=== PATIENT | female | born 2000 | race African-American/Black ===

== ENCOUNTER 2023-02-21 11:10 | Emergency (ER) | payer OTHER ==
[~2023-02-21] VITALS: Ht 167.6 cm; Wt 73.9 kg
[2023-02-21] MEDS ORDERED: NS 1,000 ML IV ONE (13:25)
[2023-02-21 14:30] LABS: BASO % 0.5 % (0.0-1.0); EOS # 0.2 10^3/uL (0.0-0.5); HEMATOCRIT 35.5 % (36.0-47.0); HEMOGLOBIN 11.3 g/dl (12.0-15.5); LYMPH # 1.5 10^3/uL (1.5-5.0); LYMPH % 38.2 % (24.0-44.0); MEAN CORPUSCULAR HEMOGLOBIN 29.4 pg (27.0-33.0); MEAN CORPUSCULAR HGB CONC 31.8 g/dl (32.0-36.5); MEAN CORPUSCULAR VOLUME 92.4 fl (80.0-96.0); MONO # 0.4 10^3/uL (0.0-0.8); MONO % 11.2 % (2.0-8.0); NEUTROPHILS # 1.7 10^3/uL (1.5-8.5); NEUTROPHILS % 44.1 % (36.0-66.0); PLATELET COUNT, AUTOMATED 322 10^3/uL (150-450); RED BLOOD COUNT 3.84 10^6/uL (4.00-5.40); WHITE BLOOD COUNT 3.9 10^3/uL (4.0-10.0)
[2023-02-21 14:49] LABS: INR 0.98; PROTHROMBIN TIME 13.2 SECONDS (12.5-14.5)
[2023-02-21 14:50] LABS: PARTIAL THROMBOPLASTIN TIME 27.5 SECONDS (24.8-34.2)
[2023-02-21 14:51] LABS: LIPASE 22 U/L (12-53)
[2023-02-21 14:53] LABS: CPK CREATINE PHOSPHOKINASE 262 U/L (34-145); D-DIMER QUANT 730.46 ng/ml (<500)
[2023-02-21 14:57] LABS: ALBUMIN 3.6 G/DL (3.2-5.2); ALKALINE PHOSPHATASE 92 U/L (46-116); ALT/SGPT 13 U/L (7.0-40); AST/SGOT 16 U/L (<34); BILIRUBIN,DIRECT 0.3 MG/DL (<0.4); BILIRUBIN,TOTAL 0.8 MG/DL (0.3-1.2); CK-MB VALUE MASS < 1.0 NG/ML (<3.6); MB/CK RELATIVE INDEX 0.38 (< OR =4); TOTAL PROTEIN 6.8 G/DL (5.7-8.2)
[2023-02-21 15:09] LABS: RSV AMPLIFICATION NEGATIVE (NEGATIVE)
[2023-02-21] MEDS ORDERED: ISOVUE-370 76% 100ML VIAL As Ordered ONE (15:43)
[2023-02-21] MEDS ORDERED: FERR324T21 PO (16:46)
[2023-02-21] MEDS ORDERED: PRED20TA PO (16:46)
[2023-02-21 16:58] VITALS: BP 106/56; TEMP 97.3; O2SAT 98
== END 2023-02-21 16:59 | disposition home or self-care (01) ==
LOC: M ED 11:10
DX: M94.0 Chondrocostal junction syndrome [Tietze] (principal); D55.0 Anemia due to glucose-6-phosphate dehydrogenase [G6PD] deficiency; R06.02 Shortness of breath; Z88.2 Allergy status to sulfonamides; Z88.6 Allergy status to analgesic agent; Z88.1 Allergy status to other antibiotic agents; Z88.8 Allergy status to other drugs, medicaments and biological substances
CPT/HCPCS: 71046; 71275; 80047; 80076; 82550; 82553; 83690; 84443; 84484; 84702; 85025; 85379; 85610; 85730; 87631; 93005; 96360; 96361; 99284; Q9967

== ENCOUNTER 2024-02-26 20:24 | Emergency (ER) | payer OTHER ==
[~2024-02-26] VITALS: Ht 168.9 cm; Wt 82.1 kg
[~2024-02-26 20:24] MED LIST: FERR324T21 PO; PRED20TA PO
[2024-02-26 21:58] LABS: BASO % 0.6 % (0.0-1.0); EOS # 0.1 10^3/uL (0.0-0.5); EOS % 3.4 % (0.0-3.0); HEMATOCRIT 36.6 % (36.0-47.0); HEMOGLOBIN 11.8 g/dl (12.0-15.5); LYMPH # 1.5 10^3/uL (1.5-5.0); LYMPH % 40.7 % (24.0-44.0); MEAN CORPUSCULAR HEMOGLOBIN 29.9 pg (27.0-33.0); MEAN CORPUSCULAR HGB CONC 32.2 g/dl (32.0-36.5); MEAN CORPUSCULAR VOLUME 92.9 fl (80.0-96.0); MONO # 0.4 10^3/uL (0.0-0.8); MONO % 11.5 % (2.0-8.0); NEUTROPHILS # 1.6 10^3/uL (1.5-8.5); NEUTROPHILS % 43.5 % (36.0-66.0); PLATELET COUNT, AUTOMATED 313 10^3/uL (150-450); RED BLOOD COUNT 3.94 10^6/uL (4.00-5.40); WHITE BLOOD COUNT 3.6 10^3/uL (4.0-10.0)
[2024-02-26 22:33] LABS: BLOOD UREA NITROGEN 11 MG/DL (9-23); CALCIUM LEVEL 8.3 MG/DL (8.5-10.1); CARBON DIOXIDE LEVEL 29 MMOL/L (20-31); CHLORIDE LEVEL 107 MMOL/L (98-107); CK-MB VALUE MASS < 1.0 NG/ML (<3.6); CPK CREATINE PHOSPHOKINASE 359 U/L (34-145); GLOMERULAR FILTRATION RATE > 60.0 (>60); GLUCOSE, FASTING 101 MG/DL (60-100); MB/CK RELATIVE INDEX 0.27 (< OR =4); POTASSIUM SERUM 3.4 MMOL/L (3.5-5.1); SODIUM LEVEL 140 MMOL/L (136-145)
[2024-02-26 22:36] LABS: HCG, SERUM QUALITATIVE NEGATIVE (NEGATIVE)
[2024-02-26 23:32] VITALS: TEMP 98.3
[2024-02-27] MEDS: KETOROLAC 30 MG/ML 1ML VIAL IV ONE (03:55)
[2024-02-27] MEDS: NS 1,000 ML IV ONE (03:55)
[2024-02-27 05:26] LABS: CK-MB VALUE MASS < 1.0 NG/ML (<3.6); CPK CREATINE PHOSPHOKINASE 356 U/L (34-145); MB/CK RELATIVE INDEX 0.28 (< OR =4)
[2024-02-27 06:00] VITALS: BP 104/56; O2SAT 100
== END 2024-02-27 06:24 | disposition home or self-care (01) ==
LOC: M ED 20:24
DX: R51.9 Headache, unspecified (principal); R42 Dizziness and giddiness; D55.0 Anemia due to glucose-6-phosphate dehydrogenase [G6PD] deficiency; Z88.2 Allergy status to sulfonamides; Z88.6 Allergy status to analgesic agent; Z88.8 Allergy status to other drugs, medicaments and biological substances; Z79.899 Other long term (current) drug therapy; Z79.52 Long term (current) use of systemic steroids
CPT/HCPCS: 71045; 80048; 82550; 82553; 84484; 84703; 85025; 87486; 87581; 87633; 87798; 93005; 93041; 94760; 96361; 96374; 99285; J1885

== ENCOUNTER 2024-03-23 07:51 | Emergency (ER) | payer OTHER ==
[2024-03-23] MEDS ORDERED: DOXY100T (08:16)
[2024-03-23 08:39] LABS: BASO % 0.7 % (0.0-1.0); EOS % 0.9 % (0.0-3.0); HEMATOCRIT 39.1 % (36.0-47.0); HEMOGLOBIN 12.8 g/dl (12.0-15.5); LYMPH # 1.1 10^3/uL (1.5-5.0); LYMPH % 24.6 % (24.0-44.0); MEAN CORPUSCULAR HEMOGLOBIN 29.8 pg (27.0-33.0); MEAN CORPUSCULAR HGB CONC 32.7 g/dl (32.0-36.5); MEAN CORPUSCULAR VOLUME 91.1 fl (80.0-96.0); MONO # 0.4 10^3/uL (0.0-0.8); MONO % 9.3 % (2.0-8.0); NEUTROPHILS # 2.9 10^3/uL (1.5-8.5); NEUTROPHILS % 63.8 % (36.0-66.0); PLATELET COUNT, AUTOMATED 331 10^3/uL (150-450); RED BLOOD COUNT 4.29 10^6/uL (4.00-5.40); WHITE BLOOD COUNT 4.5 10^3/uL (4.0-10.0)
[2024-03-23 08:52] LABS: INR 1.06; PROTHROMBIN TIME 13.5 SECONDS (12.5-14.5)
[2024-03-23 09:03] LABS: ETHYL ALCOHOL (ETHANOL) 0.213 % (0.000-0.010); LIPASE 25 U/L (12-53)
[2024-03-23 09:04] LABS: AMYLASE 70 U/L (30-118)
[2024-03-23 09:05] LABS: ALBUMIN 3.8 G/DL (3.2-5.2); ALKALINE PHOSPHATASE 73 U/L (46-116); ALT/SGPT 20 U/L (7.0-40); AST/SGOT 46 U/L (<34); BILIRUBIN,DIRECT 0.1 MG/DL (<0.4); BILIRUBIN,TOTAL 0.4 MG/DL (0.3-1.2); BLOOD UREA NITROGEN 9 MG/DL (9-23); CALCIUM LEVEL 8.7 MG/DL (8.5-10.1); CARBON DIOXIDE LEVEL 23 MMOL/L (20-31); CHLORIDE LEVEL 108 MMOL/L (98-107); CK-MB VALUE MASS 1.6 NG/ML (<3.6); CREATININE FOR GFR 0.81 MG/DL (0.55-1.30); GLOMERULAR FILTRATION RATE > 60.0 (>60); GLUCOSE, FASTING 105 MG/DL (60-100); POTASSIUM SERUM 4.3 MMOL/L (3.5-5.1); SODIUM LEVEL 139 MMOL/L (136-145); TOTAL PROTEIN 7.6 G/DL (5.7-8.2)
[2024-03-23 09:06] LABS: CPK CREATINE PHOSPHOKINASE 367 U/L (34-145); MB/CK RELATIVE INDEX 0.43 (< OR =4)
[2024-03-23 09:11] LABS: HCG, SERUM QUALITATIVE NEGATIVE (NEGATIVE)
[2024-03-23 09:25] LABS: AMPHETAMINES LEVEL URINE NEGATIVE (NEGATIVE); BARBITURATES URINE NEGATIVE (NEGATIVE); BENZODIAZEPINES URINE NEGATIVE (NEGATIVE); COCAINE METABOLITE URINE NEGATIVE (NEGATIVE); METHADONE URINE NEGATIVE (NEGATIVE); OPIATES URINE NEGATIVE (NEGATIVE); PHENCYCLIDINE URINE NEGATIVE (NEGATIVE)
[2024-03-23 09:26] LABS: CANNABINOIDS URINE NEGATIVE (NEGATIVE)
[2024-03-23] MEDS: ACETAMINOPHEN 500 MG TAB PO ONE (11:06)
[2024-03-23] MEDS: methocarbamoL 500 MG TAB PO ONE (11:06)
[2024-03-23 11:49] LABS: CK-MB VALUE MASS 2.7 NG/ML (<3.6)
[2024-03-23 11:51] LABS: CPK CREATINE PHOSPHOKINASE 408 U/L (34-145); MB/CK RELATIVE INDEX 0.66 (< OR =4)
[2024-03-23] MEDS ORDERED: METH-1164 PO (12:37)
[2024-03-23 13:02] VITALS: BP 112/63; TEMP 97.9; O2SAT 100
== END 2024-03-23 13:13 | disposition home or self-care (01) ==
LOC: M ED 07:51
DX: S00.81XA Abrasion of other part of head, initial encounter (principal); F10.10 Alcohol abuse, uncomplicated; V43.62XA Car passenger injured in collision with other type car in traffic accident, initial encounter; Y92.9 Unspecified place or not applicable; Y93.9 Activity, unspecified; Y99.9 Unspecified external cause status; Z88.2 Allergy status to sulfonamides; Z88.8 Allergy status to other drugs, medicaments and biological substances

== ENCOUNTER 2024-03-25 23:30 | Emergency (ER) | payer OTHER ==
[~2024-03-25] VITALS: Ht 167.6 cm; Wt 79.3 kg
[~2024-03-25 23:30] MED LIST changes: +DOXY100T; +METH-1164 PO
[2024-03-26] MEDS: traMADol 50 MG TAB PO ONE (01:29)
[2024-03-26] MEDS ORDERED: CYCL-707 PO (02:03)
[2024-03-26 02:06] VITALS: BP 114/75; TEMP 97; O2SAT 100
[2024-03-26] MEDS: diazePAM 5MG TABLET PO ONE (02:25)
== END 2024-03-26 03:06 | disposition home or self-care (01) ==
LOC: M ED 23:30
DX: M62.838 Other muscle spasm (principal); M54.50 Low back pain, unspecified; D75.A Glucose-6-phosphate dehydrogenase (G6PD) deficiency without anemia; Z79.899 Other long term (current) drug therapy; Z88.2 Allergy status to sulfonamides; Z88.6 Allergy status to analgesic agent; Z88.8 Allergy status to other drugs, medicaments and biological substances

== ENCOUNTER 2024-08-28 09:19 | Emergency (ER) | payer OTHER ==
[~2024-08-28] VITALS: Ht 168.9 cm; Wt 83.9 kg
[~2024-08-28 09:19] MED LIST changes: +CYCL-707 PO
[2024-08-28 09:29] VITALS: BP 112/65
[2024-08-28 11:32] VITALS: TEMP 99.2; O2SAT 100
[2024-08-28] MEDS ORDERED: BENZ200C70 PO (12:12)
== END 2024-08-28 12:24 | disposition home or self-care (01) ==
LOC: M ED 09:19
DX: R05.9 Cough, unspecified (principal); Z20.828 Contact with and (suspected) exposure to other viral communicable diseases; Z88.8 Allergy status to other drugs, medicaments and biological substances; Z88.2 Allergy status to sulfonamides; Z79.899 Other long term (current) drug therapy

== ENCOUNTER 2025-03-26 11:06 | Emergency (ER) | payer OTHER ==
[~2025-03-26] VITALS: Ht 167.6 cm; Wt 80.6 kg
[~2025-03-26 11:06] MED LIST changes: +BENZ200C70 PO
[2025-03-26] MEDS ORDERED: EXCETAB32 PO (11:25)
[2025-03-26] MEDS: KETOROLAC 30 MG/ML 1 ML VIAL IV ONE (13:06)
[2025-03-26 13:39] LABS: BASO # 0.0 10^3/uL (0.0-0.2); BASO % 0.3 % (0.0-1.0); EOS # 0.0 10^3/uL (0.0-0.5); EOS % 0.3 % (0.0-3.0); LYMPH # 1.5 10^3/uL (1.5-5.0); LYMPH % 19.8 % (24.0-44.0); MONO # 0.5 10^3/uL (0.0-0.8); MONO % 6.6 % (2.0-8.0); NEUTROPHILS # 5.6 10^3/uL (1.5-8.5); NEUTROPHILS % 72.6 % (36.0-66.0); PLATELET COUNT, AUTOMATED 342 10^3/uL (150-450)
[2025-03-26 13:43] LABS: KETONE, URINE AUTO RFX NEGATIVE (NEGATIVE); LEUKOCYTE ESTERASE UR AUTO RFX NEGATIVE (NEGATIVE); NITRITE, URINE AUTO RFX NEGATIVE (NEGATIVE); RBC, URINE AUTO RFX 1 /HPF (0-3); SQUAM EPITHELIAL CELL UR AURFX 2 /HPF (0-6); WBC, URINE AUTO RFX 3 /HPF (0-3)
[2025-03-26 14:07] LABS: CALCIUM LEVEL 9.2 MG/DL (8.5-10.1); CARBON DIOXIDE LEVEL 24 MMOL/L (20-31); CHLORIDE LEVEL 107 MMOL/L (98-107); CK-MB VALUE MASS < 1.0 NG/ML (<3.6); CPK CREATINE PHOSPHOKINASE 220 U/L (34-145); CREATININE FOR GFR 0.92 MG/DL (0.55-1.30); GLOMERULAR FILTRATION RATE 89.2 (>60); POTASSIUM SERUM 4.5 MMOL/L (3.5-5.1); SODIUM LEVEL 141 MMOL/L (136-145)
[2025-03-26 14:08] LABS: HCG, SERUM QUALITATIVE NEGATIVE (NEGATIVE)
[2025-03-26 14:09] LABS: FREE T4 1.30 NG/DL (0.89-1.76)
[2025-03-26] MEDS: NS (Normal Saline) 0.9% 1,000 ML IV ONE (14:10)
[2025-03-26 16:02] LABS: CK-MB VALUE MASS < 1.0 NG/ML (<3.6)
[2025-03-26 16:06] VITALS: BP 112/62; O2SAT 100
[2025-03-26 16:09] LABS: CPK CREATINE PHOSPHOKINASE 218 U/L (34-145)
[2025-03-26] MEDS ORDERED: RIZA10TA64 PO (16:20)
[2025-03-26 16:25] VITALS: TEMP 97.8
== END 2025-03-26 16:28 | disposition home or self-care (01) ==
LOC: M ED 11:06 → EDBD 11:06 → M ED 16:28
DX: R55 Syncope and collapse (principal); R51.9 Headache, unspecified; R06.02 Shortness of breath; Z88.2 Allergy status to sulfonamides; Z88.6 Allergy status to analgesic agent; Z88.8 Allergy status to other drugs, medicaments and biological substances; Z87.820 Personal history of traumatic brain injury
CPT/HCPCS: 71045; 80048; 81001; 82550; 82553; 84439; 84443; 84484; 84703; 85025; 93005; 93041; 96361; 96374; 99285; J1885